=== PATIENT | male | born 1970 | race Caucasian/White ===

== ENCOUNTER 2019-11-25 14:08 | Inpatient (IN) | payer OTHER ==
--- NOTE | 2019-11-25 14:56 | BHS.RME ---
Substance Use & Tx History - Substance Use History Alcohol Substance amount: 3x6 pack 16 to 24 ounces, quart of Henessy on weekend Frequency of use: Daily Substance route: Oral Date of Last Use: 11/24/19 (First use age 14 y. No seizures. Blackouts, years ago. 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 no OD, no narcan at home) Cocaine- Powder Substance amount: powder and crack use $40 Frequency of use: Daily Substance route: Inhalation (ex: sniffing or snorting), Smoking Date of Last Use: 11/24/19 (First use age 17 y) Cannabis Substance amount: $10 Frequency of use: Less than 3 times per week Substance route: Smoking Date of Last Use: 11/18/19 (First use age 13 y) Nicotine Substance amount: 1 pack Frequency of use: Daily Substance route: Smoking Date of Last Use: 11/25/19 (First use age 11 y) Physical/Psych/Mental Status - Behavior General Behavior: Increased activity (restlessness, agitation) Eye Contact: Normal - Cooperativeness Cooperativeness: Cooperative - Thinking Thought Processes: Tight Thought content: Future oriented - Physical Health Problems Is patient presently having any pain?: No Does patient presently have any injuries (include location): No Does patient currently have a fever: No COWS - Scale Resting Pulse: 0= VT 80 or Below Sweatin=Flushed/Facial Moisture Restless Observation: 1= Difficult to Sit Still Pupil Size: 0= Normal to Room Light Bone or Joint Aches: 1= Mild Discomfort Runny Nose/ Eye Tearin= None GI Upset > 30mins: 2= Nausea/Diarrhea Tremor Observation: 0= None Yawning Observation: 0= None Anxiety or Irritability: 1=Feels Anxious/Irritable Goose Flesh Skin: 0=Smooth Skin COWS Score: 7 CIWA Nausea/Vomitin Muscle Tremors: None Anxiety: 3 Agitation: 1-Slight > Activity Paroxysmal Sweats: 2 Orientation: 0-Oriented Tacttile Disturbances: 0-None Auditory Disturbances: 0-None Visual Disturbances: 0-None Headache: 0-None Present CIWA-Ar Total Score: 9
--- NOTE | 2019-11-25 16:28 | HP ---
COWS - Scale Resting Pulse: 0= DC 80 or Below Sweatin=Flushed/Facial Moisture Restless Observation: 1= Difficult to Sit Still Pupil Size: 1= Pupils >than Normal Bone or Joint Aches: 2= Severe Diffuse Aches Runny Nose/ Eye Tearin= Nasal Congestion GI Upset > 30mins: 2= Nausea/Diarrhea Tremor Observation: 2= Slight Tremor Visible Yawning Observation: 0= None Anxiety or Irritability: 2=Irritable/Anxious Goose Flesh Skin: 0=Smooth Skin COWS Score: 13 CIWA Score Nausea/Vomitin Muscle Tremors: 2 Anxiety: 3 Agitation: 1-Slight > Activity Paroxysmal Sweats: 3 Orientation: 0-Oriented Tacttile Disturbances: 0-None Auditory Disturbances: 0-None Visual Disturbances: 0-None Headache: 0-None Present CIWA-Ar Total Score: 12 - Admission Criteria [facility]ASAS Guidelines: Admission for Medically Managed Detox: Requires at least one of the followin. CIWA greater than 12 2. Seizures within the past 24 hours 3. Delirium tremens within the past 24 hours 4. Hallucinations within the past 24 hours 5. Acute intervention needed for co occurring medical disorder 6. Acute intervention needed for co occurring psychiatric disorder 7. Severe withdrawal that cannot be handled at a lower level of care (continued vomiting, continued diarrhea, abnormal vital signs) requiring intravenous medication and/or fluids 8. Admission ROS [facility] Chief Complaint: Seeking admission to detox from alcohol and heroin, on suboxone therapy Allergies/Adverse Reactions: Allergies Allergy/AdvReac Type Severity Reaction Status Date / Time No Known Allergies Allergy Verified 11/25/19 16:35 History of Present Illness: 49 years old male with 35 years of alcohol dependence and 30 years of heroin dependence is seeking admission to detox. Patient reports that his last admission to [facility] and last detox was 10 years ago. He relapsed due to COVID 19, being at home and idle. He started drinking when he was laid off this year and reports daily intake of a quart of ryanne and 3 x 6 packs of beer and uses 6 bags of heroin daily. He denies medical history, psych. history and suicidal ideation at this time. He is unemployed, lives with his girlfriend and he is on parole. He reports + eye [employer] financials, blackouts and denies alcohol related seizures. Patient's EKG indicates unusual P axis and short DC, probable junctional rhythm wit undetermined rhythm irregularity, nonspecific T wave abnormality. There is no prior EKG to compare with. Patient denies cardiac history issues, chest pain or discomfort. EKG is to be repeated tomorrow. Exam Limitations: No Limitations - Ebola screening Have you traveled outside of the country in the last 21 days: No Have you had contact with anyone from an Ebola affected area: No Have you been sick,other than usual withdrawal symptoms: No Do you have a fever: No - Review of Systems Constitutional: Chills, Malaise, Night Sweats, Changes in sleep EENT: reports: No Symptoms Reported Respiratory: reports: No Symptoms reported Cardiac: reports: No Symptoms Reported GI: reports: Constipated, Nausea, Poor Appetite, Poor Fluid Intake, Abdominal cramping : reports: No Symptoms Reported Musculoskeletal: reports: No Symptoms Reported Integumentary: reports: Dryness, Flushing Neuro: reports: Tremors Endocrine: reports: No Symptoms Reported Hematology: reports: No Symptoms Reported Psychiatric: reports: Mood/Affect Appropiate, Orientated x3 Other Systems: Reviewed and Negative Patient History - Patient Medical History Hx Anemia: No Hx Asthma: No Hx Chronic Obstructive Pulmonary Disease (COPD): No Hx Cancer: No Hx Cardiac Disorders: No Hx Congestive Heart Failure: No Hx Hypertension: No Hx Hypercholesterolemia: No Hx Pacemaker: No HX Cerebrovascular Accident: No Hx Seizures: No Hx Dementia: No Hx Diabetes: No Hx Gastrointestinal Disorders: No Hx Liver Disease: No Hx Genitourinary Disorders: No Hx Sexually Transmitted Disorders: No Hx Renal Disease (ESRD): No Hx Thyroid Disease: No Hx Human Immunodeficiency Virus (HIV): No (Negative) Hx Hepatitis C: No Hx Depression: No Hx Suicide Attempt: No (Denies suicidal ideation at this time) Hx Bipolar Disorder: No Hx Schizophrenia: No - Patient Surgical History Past Surgical History: No - PPD History Previous Implant?: No Documented Results: Negative w/o proof Implanted On Prior R Admission?: No PPD to be Administered?: Yes - Reproductive History Patient is a Female of Child Bearing Age (11 -55 yrs old): No (male) - Smoking Cessation Smoking history: Current every day smoker Have you smoked in the past 12 months: Yes Aproximately how many cigarettes per day: 20 Hx Chewing Tobacco Use: Yes Initiated information on smoking cessation: No 'Breaking Loose' booklet given: 11/25/19 - Substance & Tx. History Hx Alcohol Use: Yes Hx Substance Use: Yes Substance Use Type: Alcohol, Cocaine, Opiates, Prescribed (buprenorphine- naloxone 8-2mg sl film) Hx Substance Use Treatment: Yes ([facility]) - Substances abused Alcohol Substance route: Oral Frequency: Daily Amount used: a quart of ryanne, 3x 6 16-24 oz. beer Age of first use: 14 Date of last use: 11/24/19 Heroin Amount used: 6 bags Age of first use: 19 Date of last use: 11/25/19 Admission Physical Exam [facility] - Physical General Appearance: Yes: Moderate Distress, Tremorous, Sweating, Anxious HEENTM: Yes: Within Normal Limits Respiratory: Yes: Lungs Clear, Normal Breath Sounds, No Respiratory Distress Neck: Yes: Within Normal Limits Breast: Yes: Breast Exam Deferred Cardiology: Yes: Within Normal Limits Abdominal: Yes: Normal Bowel Sounds, Soft Genitourinary: Yes: Within Normal Limits Back: Yes: Normal Inspection Musculoskeletal: Yes: Within Normal Limits Extremities: Yes: Tremors Neurological: Yes: Within Normal Limits Integumentary: Yes: Warm Lymphatic: Yes: Within Normal Limits - Diagnostic (1) Alcohol dependence with withdrawal, uncomplicated Current Visit: Yes Status: Acute (2) Nicotine dependence Current Visit: Yes Status: Chronic Qualifiers: Nicotine product type: cigarettes Substance use status: uncomplicated Qualified Code(s): F17.210 - Nicotine dependence, cigarettes, uncomplicated (3) Encounter for monitoring Suboxone maintenance therapy Current Visit: Yes Status: Chronic Cleared for Admission [facility] - Detox or Rehab [facility] Level of Care: Medically Managed Detox Regimen/Protocol: Librium Claeared for Rehab Admission: No Inpatient Rehab Admission - Rehab Decision to Admit Inpatient rehab admission?: No
[2019-11-25] MEDS ORDERED: MENTHOL/PHENOL 1 EACH UD MM PRN (16:58)
[2019-11-25] MEDS ORDERED: METHOCARBAMOL 500 MG TABLET PO PRN (16:58)
[2019-11-25] MEDS ORDERED: MAG HYDROX/AL HYDROX/SIMETH 30 ML UNIT-DOSE CUP PO PRN (16:58)
[2019-11-25] MEDS ORDERED: MAGNESIUM HYDROX 2400MG/30ML ORAL SUSPENSION 30 ML CUP PO PRN (16:58)
[2019-11-25] MEDS ORDERED: ONDANSETRON *ODT* 4 MG TABLET SL ONE (16:58)
[2019-11-25] MEDS ORDERED: BISMUTH SUBSALICYLATE 524 MG/30 ML UD PO PRN (16:58)
[2019-11-25] MEDS ORDERED: IBUPROFEN 400 MG TABLET (FP) PO PRN (16:58)
[2019-11-25] MEDS ORDERED: chlordiazePOXIDE HCL 25 MG CAPSULE PO PRN (16:58)
[2019-11-25] MEDS ORDERED: NICOTINE POLACRILEX 2 MG GUM BUC PRN (16:58)
[2019-11-25] MEDS ORDERED: ACETAMINOPHEN 325 MG TABLET (FP) PO PRN ×2 (16:58)
[2019-11-25] MEDS ORDERED: MAGNESIUM CITRATE 300 ML BOTTLE PO PRN (16:58)
[2019-11-25 18:00] VITALS: BMI 21.2
[2019-11-25] MEDS: hydrOXYzine PAMOATE 25 MG CAPSULE (FP) PO PRN (18:49)
[2019-11-25] MEDS: MELATONIN 5 MG TABLETS PO SCH (22:09)
[2019-11-25] MEDS: chlordiazePOXIDE HCL 25 MG CAPSULE PO SCH (22:09)
[2019-11-25] MEDS: THIAMINE HCL 100 MG TABLET (FP) PO SCH (22:09)
[2019-11-26] MEDS: chlordiazePOXIDE HCL 25 MG CAPSULE PO SCH ×4 (06:02→22:38)
--- NOTE | 2019-11-26 06:42 | PN ---
"[facility] Progress Note Note: CLIENT REQUESTING TO RESTART HIS SUBOXONE AT LOWER DOSE. HE REPORTS HE WAS TAKING ONLY 2 MG OF SUBOXONE AND SELLING THE REST. UTOX + OPI, BUP, JUAN, FEN, THC, CASE D/W DR. CEDILLO WHOM WILL FOLLOW UP Search Terms: joon nieves, 1970Search Date: 11/26/2019 06:35:26 AM The Drug Utilization Report below displays all of the controlled substance prescriptions, if any, that your patient has filled in the last twelve months. The information displayed on this report is compiled from pharmacy submissions to the Department, and accurately reflects the information as submitted by the pharmacies. This report was requested by: Diallo Morin | Reference #: [id number] You have not added a MELANIE number. Keeping your MELANIE number(s) up to date on the My MELANIE Numbers page will enable the separation of your prescriptions from others in the search results. Others' Prescriptions Patient Name: Joon NievesBirth Date: 1970 Address: [address] [place], [place] [address]Sex: Male Rx Written Rx Dispensed Drug Quantity Days Supply Prescriber Name Payment Method Dispenser 11/02/2019 11/03/2019 buprenorphine-naloxone 8-2 mg sl film 60 30 Adela Ferreira MD Insurance [employer]ader B[employer] Recorder 10/05/2019 10/06/2019 buprenorphine-naloxone 8-2 mg sl film 60 30 JhonAdela MD Insurance [employer] Recorder 07/27/2019 09/04/2019 buprenorphine-naloxone 8-2 mg sl film 60 30 Adela Ferreira MD Insurance [employer]"
--- NOTE | 2019-11-26 09:04 | PN ---
S CIWA - CIWA Score Nausea/Vomitin-Mild Nausea/No Vomiting Muscle Tremors: 3 Anxiety: 3 Agitation: 2 Paroxysmal Sweats: 1-Minimal Palms Moist Orientation: 0-Oriented Tacttile Disturbances: 0-None Auditory Disturbances: 0-None Visual Disturbances: 0-None Headache: 0-None Present CIWA-Ar Total Score: 10 BHS Progress Note (SOAP) Subjective: 49 years old male admitted on 11/25/19 for alcohol withdrawal sx management treating with librium detox regiment Others' Prescriptions Patient Name: Joon Meraz Date: 1970 Address: [address] [place], [place] [id number] Sex: Male Rx Written Rx Dispensed Drug Quantity Days Supply Prescriber Name 01/15/2019 01/15/2019 buprenorphine-naloxone 8-2 mg sl film 60 30 JhonAdela MD Payment Method Insurance * Dispenser Prasanth Parrish 12/12/2018 12/12/2018 buprenorphine-naloxone 8-2 mg sl film 60 30 JhonAdela MD Payment Method Insurance * Dispenser Prasanth Parrish Date: 1970 Address: [address] [place] [address] Sex: Male Rx Written Rx Dispensed Drug Quantity Days Supply Prescriber Name 11/02/2019 11/03/2019 buprenorphine-naloxone 8-2 mg sl film 60 30 Adela Ferreira MD Payment Method Insurance * Dispenser Prasanth Parrish 10/05/2019 10/06/2019 buprenorphine-naloxone 8-2 mg sl film 60 30 JhonAdela MD Payment Method Insurance * Dispenser Prasanth Parrish 07/27/2019 09/04/2019 buprenorphine-naloxone 8-2 mg sl film 60 30 JhonAdela MD Payment Method Insurance * Dispenser 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 07/27/2019 08/03/2019 buprenorphine-naloxone 8-2 mg sl film 60 30 JhonAdela MD Payment Method Insurance * Dispenser 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 06/01/2019 07/01/2019 buprenorphine-naloxone 8-2 mg sl film 60 30 JhonAdela MD Payment Method Insurance * Dispenser Prasanth Parrish 06/01/2019 06/01/2019 buprenorphine-naloxone 8-2 mg sl film 60 30 JhonAdela MD Payment Method Insurance * Dispenser Prasanth Parrish 05/01/2019 05/01/2019 buprenorphine-naloxone 8-2 mg sl film 60 30 Adela Ferreira MD Payment Method Insurance * Dispenser Prasanth Parrish 03/26/2019 03/26/2019 buprenorphine-naloxone 8-2 mg sl film 60 30 Adela Ferreira MD Payment Method Insurance * Dispenser Prasanth Parrish 02/17/2019 02/17/2019 buprenorphine-naloxone 8-2 mg sl film 60 30 Adela Ferreira MD Payment Method Insurance * Dispenser Prasanth Parrish mr meraz reports to admission provider taking 2 mg of suboxone and selling rest of suboxone suboxone 2 mg sl daily initiated Objective: 11/26/19 12:47 Vital Signs - 24 hr 11/25/19 11/25/19 11/25/19 17:55 18:29 18:51 Temperature 97.2 F L 97.7 F Pulse Rate 67 62 Respiratory 16 16 Rate Blood Pressure 119/86 130/79 O2 Sat by Pulse 99 Oximetry (%) 11/25/19 11/26/19 11/26/19 20:51 00:30 03:22 Temperature 97.3 F L Pulse Rate 68 Respiratory 18 18 16 Rate Blood Pressure 109/77 O2 Sat by Pulse 97 Oximetry (%) 11/26/19 11/26/19 06:45 09:00 Temperature 97.8 F 97.1 F L Pulse Rate 51 L 92 H Respiratory 18 18 Rate Blood Pressure 134/75 135/74 O2 Sat by Pulse 98 Oximetry (%) Assessment: 11/26/19 14:22 alcohol withdrawal Plan: librium regiment
[2019-11-26] MEDS: PRENATAL VITAMINS W/ FOLIC ACID TABLET (FP) PO SCH (09:59)
[2019-11-26] MEDS ORDERED: BUPRENORPHINE/NALOXONE 2 MG/0.5 MG FILM PACKET SL SCH (10:00)
[2019-11-26] MEDS ORDERED: BUPRENORPHINE/NALOXONE 8 MG/2 MG FILM PACKET SL SCH (10:00)
[2019-11-26] MEDS: NICOTINE 21 MG/24 HOURS TOPICAL PATCH TD SCH (10:01)
--- NOTE | 2019-11-26 14:09 | EKG ---
Test Reason : Blood Pressure : / mmHG Vent. Rate : 057 BPM Atrial Rate : 057 BPM P-R Int : 130 ms QRS Dur : 098 ms QT Int : 420 ms P-R-T Axes : 268 085 081 degrees QTc Int : 408 ms SINUS BRADYCARDIA NONSPECIFIC T WAVE ABNORMALITY ABNORMAL ECG NO PREVIOUS ECGS AVAILABLE Confirmed by RODO BROWN, BILLIE ([id number]) on 11/26/2019 2:08:49 PM Referred By: Confirmed By:BILLIE KOEHLER MD
[2019-11-26] MEDS: hydrOXYzine PAMOATE 25 MG CAPSULE (FP) PO PRN ×2 (21:10→22:38)
[2019-11-26] MEDS: THIAMINE HCL 100 MG TABLET (FP) PO SCH (22:38)
[2019-11-26] MEDS: MELATONIN 5 MG TABLETS PO SCH (22:39)
[2019-11-27] MEDS: chlordiazePOXIDE HCL 25 MG CAPSULE PO SCH ×4 (05:26→22:09)
--- NOTE | 2019-11-27 09:57 | PN ---
S Progress Note (SOAP) Subjective: Pt irritable yelling about Suboxone dose being inappropriately low Objective: 11/27/19 09:55 Pe Gnl: WD, slender MS: irritable, yelling at staff about dose of Suboxone Motor: normal Gait; steady Assessment: 11/27/19 09:51 1. Alcohol use disorder 2. Opioid use disorder on maintenance Prescriptions Patient Name: Joon Meraz Date: 1970 Address: [address] [place] [address] Sex: Male Rx Written Rx Dispensed Drug Quantity Days Supply Prescriber Name Payment Method Dispenser 11/02/2019 11/03/2019 buprenorphine-naloxone 8-2 mg sl film 60 30 JhonAdela MD Insurance [employer] Yacht [employer] 10/05/2019 10/06/2019 buprenorphine-naloxone 8-2 mg sl film 60 30 JhonAdela MD Insurance [employer]acht [employer] 07/27/2019 09/04/2019 buprenorphine-naloxone 8-2 mg sl film 60 30 JhonAdela MD Insurance [employer]acht [employer] 07/27/2019 08/03/2019 buprenorphine-naloxone 8-2 mg sl film 60 30 JhonAdela MD Insurance [employer]acht [employer] 06/01/2019 07/01/2019 buprenorphine-naloxone 8-2 mg sl film 60 30 JhonAdela MD Insurance [employer] Yacht [employer] 06/01/2019 06/01/2019 buprenorphine-naloxone 8-2 mg sl film 60 30 JhonAdela MD Insurance [employer] 11/27/19 09:57 Plan: 1. Librium protocol, estimated completion 11/29 2. will increase Suboxone to 8/2, 2 strips daily 3. order routine labs
[2019-11-27] MEDS ORDERED: BUPRENORPHINE/NALOXONE 8 MG/2 MG FILM PACKET SL SCH (10:00)
[2019-11-27] MEDS: PRENATAL VITAMINS W/ FOLIC ACID TABLET (FP) PO SCH (10:39)
[2019-11-27] MEDS: NICOTINE 21 MG/24 HOURS TOPICAL PATCH TD SCH (10:39)
[2019-11-27] MEDS: BUPRENORPHINE/NALOXONE 8 MG/2 MG FILM PACKET SL SCH ×2 (10:39→21:00)
[2019-11-27] MEDS: THIAMINE HCL 100 MG TABLET (FP) PO SCH (22:09)
[2019-11-27] MEDS: MELATONIN 5 MG TABLETS PO SCH (22:09)
[2019-11-27] MEDS: hydrOXYzine PAMOATE 25 MG CAPSULE (FP) PO PRN (22:10)
[2019-11-28] MEDS ORDERED: chlordiazePOXIDE HCL 10 MG CAPSULE PO PRN
[2019-11-28] MEDS: chlordiazePOXIDE HCL 10 MG CAPSULE PO SCH ×4 (05:59→22:03)
[2019-11-28] MEDS ORDERED: MASKS NR ONE (09:01)
[2019-11-28] MEDS: BUPRENORPHINE/NALOXONE 8 MG/2 MG FILM PACKET SL SCH ×2 (10:01→22:03)
[2019-11-28] MEDS: PRENATAL VITAMINS W/ FOLIC ACID TABLET (FP) PO SCH (10:01)
[2019-11-28] MEDS: NICOTINE 21 MG/24 HOURS TOPICAL PATCH TD SCH (10:01)
[2019-11-28 10:06] LABS: BASO % 1.3 % (0-2.0); EOS % 4.9 % (0-4.5); HEMATOCRIT 50.3 % (35.4-49); HEMOGLOBIN 16.1 GM/dL (11.7-16.9); LYMPH % 42.8 % (8-40); MCH 30.1 pg (25.7-33.7); MEAN CELL VOLUME 94.1 fl (80-96); MEAN PLT VOLUME 8.5 fl (7.5-11.1); MONO % 7.4 % (3.8-10.2); NEUT % 43.6 % (42.8-82.8); PLATELET COUNT 349 K/MM3 (134-434); RBC 5.34 M/mm3 (4.00-5.60); WHITE BLOOD COUNT 8.7 K/mm3 (4.0-10.0)
[2019-11-28 10:14] LABS: BILIRUBIN,TOTAL 0.6 mg/dL (0.2-1); BLOOD UREA NITROGEN 15.9 mg/dL (7-18); CALCIUM 9.2 mg/dL (8.5-10.1); POTASSIUM 4.2 mmol/L (3.5-5.1); TOT PROT 7.5 g/dl (6.4-8.2)
--- NOTE | 2019-11-28 11:45 | PN ---
S CIWA - CIWA Score Nausea/Vomitin-No Nausea/No Vomiting Muscle Tremors: None Anxiety: 2 Agitation: 0-Normal Activity Paroxysmal Sweats: 3 Orientation: 0-Oriented Tacttile Disturbances: 0-None Auditory Disturbances: 0-None Visual Disturbances: 0-None Headache: 2-Mild CIWA-Ar Total Score: 7 B[facility] Progress Note (SOAP) Subjective: c/o anxiety, sweats, and headache. Objective: 11/28/19 11:44 Vital Signs 11/28/19 09:39 Temperature 97.3 F L Pulse Rate 74 Respiratory 18 Rate Blood Pressure 107/64 Laboratory Last Values WBC 8.7 K/mm3 (4.0-10.0) 11/28/19 07:30 RBC 5.34 M/mm3 (4.00-5.60) 11/28/19 07:30 Hgb 16.1 GM/dL (11.7-16.9) 11/28/19 07:30 Hct 50.3 % (35.4-49) H 11/28/19 07:30 MCV 94.1 fl (80-96) 11/28/19 07:30 MCH 30.1 pg (25.7-33.7) 11/28/19 07:30 MCHC 32.0 g/dl (32.0-35.9) 11/28/19 07:30 RDW 15.0 % (11.9-15.9) 11/28/19 07:30 Plt Count 349 K/MM3 (134-434) 11/28/19 07:30 MPV 8.5 fl (7.5-11.1) 11/28/19 07:30 Absolute Neuts (auto) 3.8 K/mm3 (1.5-8.0) 11/28/19 07:30 Neutrophils % 43.6 % (42.8-82.8) 11/28/19 07:30 Lymphocytes % 42.8 % (8-40) H 11/28/19 07:30 Monocytes % 7.4 % (3.8-10.2) 11/28/19 07:30 Eosinophils % 4.9 % (0-4.5) H 11/28/19 07:30 Basophils % 1.3 % (0-2.0) 11/28/19 07:30 Nucleated RBC % 0 % (0-0) 11/28/19 07:30 Sodium 140 mmol/L (136-145) 11/28/19 07:30 Potassium 4.2 mmol/L (3.5-5.1) 11/28/19 07:30 Chloride 106 mmol/L (98-107) 11/28/19 07:30 Carbon Dioxide 30 mmol/L (21-32) 11/28/19 07:30 Anion Gap 5 MMOL/L (8-16) L 11/28/19 07:30 BUN 15.9 mg/dL (7-18) 11/28/19 07:30 Creatinine 1.0 mg/dL (0.55-1.3) 11/28/19 07:30 Est GFR (CKD-EPI)AfAm 102.69 11/28/19 07:30 Est GFR (CKD-EPI)NonAf 88.61 11/28/19 07:30 Random Glucose 107 mg/dL (74-106) H 11/28/19 07:30 Calcium 9.2 mg/dL (8.5-10.1) 11/28/19 07:30 Total Bilirubin 0.6 mg/dL (0.2-1) 11/28/19 07:30 AST 18 U/L (15-37) 11/28/19 07:30 ALT 30 U/L (13-61) 11/28/19 07:30 Alkaline Phosphatase 91 U/L (45-117) 11/28/19 07:30 Total Protein 7.5 g/dl (6.4-8.2) 11/28/19 07:30 Albumin 4.0 g/dl (3.4-5.0) 11/28/19 07:30 COVID-19 (SPIKE) Not detected (Not Detected) 11/25/19 18:12 Labs noted. Assessment: 11/28/19 11:44 AOX3, in no acute respiratory distress. Full ROM, ambulating in the unit. Withdrawal symptoms. Plan: continue detox.
[2019-11-28] MEDS: MELATONIN 5 MG TABLETS PO SCH (22:02)
[2019-11-28] MEDS: THIAMINE HCL 100 MG TABLET (FP) PO SCH (22:03)
[2019-11-29] MEDS: chlordiazePOXIDE HCL 10 MG CAPSULE PO SCH ×2 (05:31→16:55)
[2019-11-29] MEDS: PRENATAL VITAMINS W/ FOLIC ACID TABLET (FP) PO SCH (09:31)
[2019-11-29] MEDS: NICOTINE 21 MG/24 HOURS TOPICAL PATCH TD SCH (09:32)
[2019-11-29] MEDS: BUPRENORPHINE/NALOXONE 8 MG/2 MG FILM PACKET SL SCH ×2 (09:32→21:15)
--- NOTE | 2019-11-29 11:11 | PN ---
S CIWA - CIWA Score Nausea/Vomitin-Mild Nausea/No Vomiting Muscle Tremors: 1-None Visible, but [place] Anxiety: 1-Mildly Anxious Agitation: 0-Normal Activity Paroxysmal Sweats: No Perspiration Orientation: 0-Oriented Tacttile Disturbances: 0-None Auditory Disturbances: 0-None Visual Disturbances: 0-None Headache: 1-Very Mild CIWA-Ar Total Score: 4 BHS Progress Note (SOAP) Subjective: 49 years old male admitted on 11/25/19 for alcohol withdrawal sx management treating with librium detox regiment taking suboxone 8-2mg po bid last filled 11/02/19 of 30 days films mr nieves prefers returning to suboxone program for behavior and psychosocial therapies Objective: 11/29/19 11:10 Vital Signs - 24 hr 11/28/19 11/28/19 11/28/19 12:35 16:26 21:54 Temperature 97.1 F L 97.8 F 97.5 F L Pulse Rate 78 68 69 Respiratory 16 18 18 Rate Blood Pressure 112/74 116/71 110/69 O2 Sat by Pulse 100 98 Oximetry (%) 11/29/19 11/29/19 11/29/19 00:30 05:36 08:42 Temperature 97.3 F L 97.1 F L Pulse Rate 70 80 Respiratory 18 18 18 Rate Blood Pressure 110/73 121/79 O2 Sat by Pulse 98 Oximetry (%) Laboratory Tests 11/25/19 11/28/19 11/28/19 18:12 07:30 07:30 WBC 8.7 RBC 5.34 Hgb 16.1 Hct 50.3 H MCV 94.1 MCH 30.1 MCHC 32.0 RDW 15.0 Plt Count 349 MPV 8.5 Absolute Neuts (auto) 3.8 Neutrophils % 43.6 Lymphocytes % 42.8 H Monocytes % 7.4 Eosinophils % 4.9 H Basophils % 1.3 Nucleated RBC % 0 Sodium 140 Potassium 4.2 Chloride 106 Carbon Dioxide 30 Anion Gap 5 L BUN 15.9 Creatinine 1.0 Est GFR (CKD-EPI)AfAm 102.69 Est GFR (CKD-EPI)NonAf 88.61 Random Glucose 107 H Calcium 9.2 Total Bilirubin 0.6 AST 18 ALT 30 Alkaline Phosphatase 91 Total Protein 7.5 Albumin 4.0 COVID-19 (SPIKE) Not detected 11/29/19 11:11 syphilis serology has been canceled as per chart reviewed 11/29/19 11:12 Assessment: 11/29/19 11:12 alcohol withdrawal Plan: librium regiment suboxone maintenance program
[2019-11-29] MEDS ORDERED: MASKS NR ONE (13:06)
--- NOTE | 2019-11-29 14:24 | EKG ---
Test Reason : Blood Pressure : / mmHG Vent. Rate : 070 BPM Atrial Rate : 070 BPM P-R Int : 138 ms QRS Dur : 082 ms QT Int : 382 ms P-R-T Axes : 074 081 080 degrees QTc Int : 412 ms NORMAL SINUS RHYTHM NORMAL ECG WHEN COMPARED WITH ECG OF 25-NOV-2019 17:12, LIKELY NO SIGNIFICANT CHANGES Confirmed by YANDY MCCOY MD ([id number]) on 11/29/2019 2:24:08 PM Referred By: SIMONE ESPOSITO Confirmed By:YANDY MCCOY MD
[2019-11-29] MEDS: THIAMINE HCL 100 MG TABLET (FP) PO SCH (21:15)
[2019-11-29] MEDS: MELATONIN 5 MG TABLETS PO SCH (21:15)
[2019-11-30] MEDS ORDERED: chlordiazePOXIDE HCL 10 MG CAPSULE PO ONE (05:00)
[2019-11-30] MEDS: NICOTINE 21 MG/24 HOURS TOPICAL PATCH TD SCH (09:03)
[2019-11-30] MEDS: BUPRENORPHINE/NALOXONE 8 MG/2 MG FILM PACKET SL SCH (09:03)
[2019-11-30] MEDS: PRENATAL VITAMINS W/ FOLIC ACID TABLET (FP) PO SCH (09:03)
[2019-11-30 09:05] VITALS: BP 126/61; PULSE 72; TEMP 96.9
--- NOTE | 2019-11-30 13:33 | DS ---
[facility] Detox Discharge Summary Admission Date: 11/25/19 Discharge Date: 11/30/19 - History Present History: Alcohol Dependence Additional Comments: 49 years old male admitted on 11/25/19 for alcohol withdrawal sx management treated with librium detox regiment mr nieves has completed the librium regiment and is tolerated well alert oriented x 3 speech clearly coherently ambulating with steady gaits cardiac s1s2 regular rate rhythm respiratory clear lung sounds bilaterally on auscultation extremities full range of motion Pertinent Past History: time for discharge 33 minutes "CLIENT REQUESTING TO RESTART HIS SUBOXONE AT LOWER DOSE. HE REPORTS HE WAS TAKING ONLY 2 MG OF SUBOXONE AND SELLING THE REST. UTOX + OPI, BUP, JUAN, FEN, THC, CASE D/W DR. CEDILLO WHOM WILL FOLLOW UP" mr nieves received suboxone 8-2mg sl bid daily upon admission mr nieves requests 2 mg of suboxone sl daily due to selling rest of suboxone as per admission provider mr nieves demands 16-4mg sl suboxone daily during the alcohol detox mr nieves prefers to return to suboxone provider for behavior and psychosocial therapies - Physical Exam Results Vital Signs: Vital Signs Temperature 96.9 F L 11/30/19 08:45 Pulse Rate 72 11/30/19 08:45 Respiratory Rate 16 11/30/19 08:45 Blood Pressure 126/61 11/30/19 08:45 O2 Sat by Pulse Oximetry (%) 98 11/30/19 06:15 Pertinent Admission Physical Exam Findings: alcohol withdrawal Laboratory Tests 11/25/19 11/28/19 11/28/19 18:12 07:30 07:30 WBC 8.7 RBC 5.34 Hgb 16.1 Hct 50.3 H MCV 94.1 MCH 30.1 MCHC 32.0 RDW 15.0 Plt Count 349 MPV 8.5 Absolute Neuts (auto) 3.8 Neutrophils % 43.6 Lymphocytes % 42.8 H Monocytes % 7.4 Eosinophils % 4.9 H Basophils % 1.3 Nucleated RBC % 0 Sodium 140 Potassium 4.2 Chloride 106 Carbon Dioxide 30 Anion Gap 5 L BUN 15.9 Creatinine 1.0 Est GFR (CKD-EPI)AfAm 102.69 Est GFR (CKD-EPI)NonAf 88.61 Random Glucose 107 H Calcium 9.2 Total Bilirubin 0.6 AST 18 ALT 30 Alkaline Phosphatase 91 Total Protein 7.5 Albumin 4.0 COVID-19 (SPIKE) Not detected lab noted - Treatment Hospital Course: Detox Protocol Followed, Detoxed Safely, Responded well, Discharged Condition Good, Rehab Referral Accepted Patient has Accepted a Rehab Referral to: [facility] - Medication Discharge Medications: Ambulatory Orders Buprenorphine/Naloxone [Suboxone 8Mg/2Mg Sl Film -] 1 each SL BID 11/29/19 - Diagnosis (1) Alcohol dependence with withdrawal, uncomplicated Status: Acute (2) Encounter for monitoring Suboxone maintenance therapy Status: Chronic (3) Nicotine dependence Status: Acute Qualifiers: Nicotine product type: cigarettes Substance use status: in withdrawal Qualified Code(s): F17.213 - Nicotine dependence, cigarettes, with withdrawal - AMA Did Patient Leave Against Medical Advice: No CIWA Score - CIWA Score Nausea/Vomitin-No Nausea/No Vomiting Muscle Tremors: 1-None Visible, but [place] Anxiety: 1-Mildly Anxious Agitation: 0-Normal Activity Paroxysmal Sweats: No Perspiration Orientation: 0-Oriented Tacttile Disturbances: 0-None Auditory Disturbances: 0-None Visual Disturbances: 0-None Headache: 0-None Present CIWA-Ar Total Score: 2
== END 2019-11-30 09:17 | disposition home or self-care (01) | DRG 773 ==
LOC: YASAS 14:08 → Y3N 17:40
PROVIDERS: ADMIT Allergy & Immunology; ATTEND Allergy & Immunology
PROC: HZ2ZZZZ Detoxification Services for Substance Abuse Treatment (ICD-10-PCS; principal; 2019-11-25)
DX: F10.230 Alcohol dependence with withdrawal, uncomplicated (principal); F11.20 Opioid dependence, uncomplicated; F14.20 Cocaine dependence, uncomplicated; F12.10 Cannabis abuse, uncomplicated; F17.210 Nicotine dependence, cigarettes, uncomplicated; Z51.81 Encounter for therapeutic drug level monitoring; Z79.899 Other long term (current) drug therapy; Z91.012 Allergy to eggs
CPT/HCPCS: 36415; 80053; 85025; 93005; 93010; U0003

== ENCOUNTER 2021-01-25 14:03 | Inpatient (IN) | payer OTHER ==
[2021-01-25 15:04] VITALS: BMI 21.2
[2021-01-25] MEDS ORDERED: MAGNESIUM CITRATE 300 ML BOTTLE PO PRN (18:36)
[2021-01-25] MEDS ORDERED: MAGNESIUM HYDROX 2400MG/30ML ORAL SUSPENSION 30 ML CUP PO PRN (18:36)
[2021-01-25] MEDS ORDERED: BISMUTH SUBSALICYLATE 524 MG/30 ML PO PRN (18:36)
[2021-01-25] MEDS ORDERED: IBUPROFEN 400 MG TABLET (FP) PO PRN (18:36)
[2021-01-25] MEDS ORDERED: MENTHOL/PHENOL 1 EACH UD MM PRN (18:36)
[2021-01-25] MEDS ORDERED: ONDANSETRON *ODT* 4 MG TABLET SL PRN (18:36)
[2021-01-25] MEDS ORDERED: MAG HYDROX/AL HYDROX/SIMETH 30 ML UNIT-DOSE CUP PO PRN (18:36)
[2021-01-25] MEDS ORDERED: ACETAMINOPHEN 325 MG TABLET (FP) PO PRN ×2 (18:36)
[2021-01-25] MEDS ORDERED: NICOTINE 10 MG CARTRIDGE (INHALER) IH PRN (18:36)
[2021-01-25] MEDS ORDERED: cloNIDine HCL 0.1 MG TABLET PO PRN (18:38)
[2021-01-25] MEDS ORDERED: methaDONE HCL 10 MG TABLET (FOR DETOX USE ONLY) PO ONE (22:00)
[2021-01-25] MEDS ORDERED: hydrOXYzine PAMOATE 25 MG CAPSULE (FP) PO SCH (22:00)
[2021-01-25] MEDS: THIAMINE HCL 100 MG TABLET (FP) PO SCH (22:39)
[2021-01-25] MEDS: MELATONIN 5 MG TABLETS PO SCH (22:43)
[2021-01-26] MEDS ORDERED: methaDONE HCL 10 MG TABLET (FOR DETOX USE ONLY) ONE (09:36)
[2021-01-26] MEDS: PRENATAL VITAMINS W/ FOLIC ACID TABLET (FP) PO SCH (10:36)
[2021-01-26] MEDS: hydrOXYzine PAMOATE 25 MG CAPSULE (FP) PO PRN (10:38)
[2021-01-26] MEDS: METHOCARBAMOL 500 MG TABLET PO PRN (10:38)
[2021-01-26 12:38] LABS: HEMATOCRIT 38.9 % (35.4-49); HEMOGLOBIN 13.3 GM/dL (11.7-16.9); MCH 30.9 pg (25.7-33.7); MCHC 34.1 g/dl (32.0-35.9); MEAN CELL VOLUME 90.7 fl (80-96); MEAN PLT VOLUME 8.3 fl (7.5-11.1); PLATELET COUNT 286 10^3/uL (134-434); RBC 4.29 M/mm3 (4.00-5.60); RDW 14.1 % (11.9-15.9)
[2021-01-26 12:57] LABS: BLOOD UREA NITROGEN 13.4 mg/dL (7-18); CALCIUM 8.7 mg/dL (8.5-10.1)
[2021-01-26 12:58] LABS: ALBUMIN 3.3 g/dl (3.4-5.0)
[2021-01-26 13:01] LABS: CREATININE 0.8 mg/dL (0.55-1.3)
[2021-01-26 13:03] LABS: BILIRUBIN,TOTAL 0.3 mg/dL (0.2-1); TOT PROT 6.5 g/dl (6.4-8.2)
[2021-01-26] MEDS: MELATONIN 5 MG TABLETS PO SCH (22:42)
[2021-01-26] MEDS: THIAMINE HCL 100 MG TABLET (FP) PO SCH (22:42)
[2021-01-27] MEDS ORDERED: diazePAM 5 MG TABLET PO PRN (09:31)
[2021-01-27] MEDS ORDERED: methaDONE HCL 10 MG TABLET (FOR DETOX USE ONLY) PO ONE (10:00)
[2021-01-27] MEDS: PRENATAL VITAMINS W/ FOLIC ACID TABLET (FP) PO SCH (10:24)
[2021-01-27] MEDS: METHOCARBAMOL 500 MG TABLET PO PRN (10:24)
[2021-01-27] MEDS: hydrOXYzine PAMOATE 25 MG CAPSULE (FP) PO PRN (10:26)
[2021-01-27 17:06] VITALS: BP 111/64; PULSE 87; TEMP 97.3
[2021-01-29] MEDS ORDERED: methaDONE HCL 10 MG TABLET (FOR DETOX USE ONLY) PO ONE (10:00)
== END 2021-01-27 16:49 | disposition left against medical advice (07) | DRG 770 ==
LOC: YASAS 14:03 → Y6N 19:41 → Y3N 01-26 11:31
PROVIDERS: ADMIT Allergy & Immunology; ATTEND Allergy & Immunology
PROC: HZ2ZZZZ Detoxification Services for Substance Abuse Treatment (ICD-10-PCS; principal; 2021-01-25)
DX: F10.230 Alcohol dependence with withdrawal, uncomplicated (principal); F11.20 Opioid dependence, uncomplicated; F14.20 Cocaine dependence, uncomplicated; F12.10 Cannabis abuse, uncomplicated; F17.210 Nicotine dependence, cigarettes, uncomplicated; Z51.81 Encounter for therapeutic drug level monitoring
CPT/HCPCS: 36415; 80053; 85027; 86780; C9803; U0003; U0005